=== PATIENT | female | born 1990 | race Caucasian/White ===

== ENCOUNTER → 2018-10-14 15:41 | Outpatient (CLI) | payer OTHER, SELFPAY ==
[2018-10-14 18:29] LABS: Hematocrit 40.2 % (36-46); Hemoglobin 13.5 g/dL (12.0-16.0)
[2018-10-14 19:01] LABS: GTT (PREG) 1 Hour PP 50gm Dose 138 mg/dL (76-139)
== END ==
PROVIDERS: Visit Provider Family Medicine
DX: Z34.02 Encounter for supervision of normal first pregnancy, second trimester (principal); Z3A.24 24 weeks gestation of pregnancy; Z34.01 Encounter for supervision of normal first pregnancy, first trimester
CPT/HCPCS: 36415; 82950; 85014; 85018; 86787

== ENCOUNTER 2018-11-28 10:48 | Observation (INO) | payer OTHER, SELFPAY ==
--- NOTE | 2018-11-28 11:19 | PM.OBHP.1 ---
OB HPI Date/Time Date of admission: 11/28/18 Date Patient Seen: 11/28/18 Time Patient Seen: 11:19 History of Present Condition Chief complaint: Observation : 1 Para: 0 Estimated Date of Delivery: 01/25/19 Estimated Gestational Age (weeks): 31 Narrative: Regi Couch is a 28 year old female with spontaneous rupture of membranes at 10:30 a.m. today History of Present care: good care (Patient started care at [facility] recently transferred care we do not have early records yet) and initiated at week # (11) Dating criteria: LMP confirmed by 1st trimester US Ultrasounds: normal 1st trimester US and normal mid trimester US Obstetrical complications: none Medical complications: none Preadmission Labs Blood type: A (+) positive -: Antibody screen: negative, HBsAG: negative, HIV: negative and RPR/VDLR: negative -: Chlamydia screen: not detected and Gonorrhea screen: not detected -: Rubella: immune and Varicella: immune HCT: 40 HCAB: negative Integrated screen: negative 1 hr GTT: 138 Evaluation Evaluation Baseline heart rate: 145 Variability: Moderate (11-25) monitor accelerations: Present monitor decelerations: Absent Contraction Frequency (minutes): 0 Category of Tracing: I Cervical dilation (cm): 0 Cervical effacement (%): 0 station: -1 Meds Home Medications Medication Instructions Recorded Confirmed Type 1 tab PO DAILY #30 tab 11/02/18 11/02/18 Rx vitamin,calcium,gzeeugse-hfuo-tfpqg acid tablet Allergies Allergy/AdvReac Type Severity Reaction Status Date / Time No Known Allergies Allergy Uncoded 10/28/17 12:44 Review of Systems Review of Systems Patient states she had a mild headache and did not feel well yesterday but feels great today. She has had good movement. No fevers. No abdominal pain. All systems reviewed & are unremarkable except as noted in HPI and below Exam Vital Signs (past 8 hours): Blood pressure 120/82, pulse 69, temperature 98.1? Narrative Exam Narrative: HEENT exam within normal limits. Lungs are clear to auscultation and percussion. Heart is regular rate and rhythm no S3-S4 or murmurs. No thyromegaly. Abdomen is gravid and nontender. Ultrasound confirms is vertex. Extremities without edema and nontender Objective Labs Result Diagrams: 11/28/18 11:15 Assessment and Plan Assessment and Plan Assessment and Plan narrative: 31w 5d wade gestation with premature rupture membranes. Cervix is long closed and thick. Infant is vertex. There are no contractions. Patient will receive betamethasone. Group B strep PCR was performed. Will transfer to a facility with intensive care unit. Will discuss with transfer unit whether they wishes to start ampicillin or penicillin, also whether they wish us to start IV magnesium sulfate. Time Spent with Patient Total time spent with greater than 50% in coordination of care (as documented) at patient's floor/unit and/or counseling patient:: 15-24 minutes
[2018-11-28] MEDS: BETAMETHASONE 30 MG/5 ML MDV 12 MG IM (11:21)
[2018-11-28] MEDS: LACTATED RINGERS 1,000 ML 100 ML IV (11:21)
[2018-11-28 11:26] LABS: Add Manual Diff / Slide Review NO; Basophils Absolute Auto 100 /uL (0-100); Basophils Percent Auto 0.6 % (0-2); Eosinophils Absolute Auto 100 /uL (0-450); Eosinophils Percent Auto 0.9 % (2-4); Hematocrit 41.2 % (36-46); Hemoglobin 13.8 g/dL (12.0-16.0); Lymphocytes Absolute Auto 2400 /uL (1100-4500); Mean Corpuscular HGB Conc 33.6 % (30-36); Mean Corpuscular Hemoglobin 30.3 PG (26-34); Mean Corpuscular Volume 90.1 fL (80-100); Monocytes Absolute Auto 500 /uL (0-900); Neutrophils Absolute Auto 6300 /uL (1500-7000); Neutrophils Percent Auto 67.5 % (50-75); Platelet Count 190 X10^3/uL (150-400); Red Blood Cell Count 4.57 X10^6/uL (4.0-5.2); Red Cell Distribution Width 13.2 % (11.6-14.8); White Blood Cell Count 9.3 X10^3/uL (4.5-11.0)
--- NOTE | 2018-11-28 11:26 | P.HPOB_ITS ---
OB HPI Date/Time Date of admission: 11/28/18 Date Patient Seen: 11/28/18 Time Patient Seen: 11:19 History of Present Condition Chief complaint: Observation : 1 Para: 0 Estimated Date of Delivery: 01/25/19 Estimated Gestational Age (weeks): 31 Narrative: Regi Couch is a 28 year old female with spontaneous rupture of membranes at 10:30 a.m. today History of Present care: good care (Patient started care at [facility] recently transferred care we do not have early records yet) and initiated at week # (11) Dating criteria: LMP confirmed by 1st trimester US Ultrasounds: normal 1st trimester US and normal mid trimester US Obstetrical complications: none Medical complications: none Preadmission Labs Blood type: A (+) positive -: Antibody screen: negative, HBsAG: negative, HIV: negative and RPR/VDLR: negative -: Chlamydia screen: not detected and Gonorrhea screen: not detected -: Rubella: immune and Varicella: immune HCT: 40 HCAB: negative Integrated screen: negative 1 hr GTT: 138 Evaluation Evaluation Baseline heart rate: 145 Variability: Moderate (11-25) monitor accelerations: Present monitor decelerations: Absent Contraction Frequency (minutes): 0 Category of Tracing: I Cervical dilation (cm): 0 Cervical effacement (%): 0 station: -1 Meds Home Medications Medication Instructions Recorded Confirmed Type 1 tab PO DAILY #30 tab 11/02/18 11/02/18 Rx vitamin,calcium,hoomvmbs-uwby-udvfv acid tablet Allergies Allergy/AdvReac Type Severity Reaction Status Date / Time No Known Allergies Allergy Uncoded 10/28/17 12:44 Review of Systems Review of Systems Patient states she had a mild headache and did not feel well yesterday but feels great today. She has had good movement. No fevers. No abdominal pain. All systems reviewed & are unremarkable except as noted in HPI and below Exam Vital Signs (past 8 hours): Blood pressure 120/82, pulse 69, temperature 98.1? Narrative Exam Narrative: HEENT exam within normal limits. Lungs are clear to auscultation and percussion. Heart is regular rate and rhythm no S3-S4 or murm urs. No thyromegaly. Abdomen is gravid and nontender. Ultrasound confirms is vertex. Extremities without edema and nontender Objective Labs Result Diagrams: 11/28/18 11:15 Assessment and Plan Assessment and Plan Assessment and Plan narrative: 31w 5d wade gestation with premature rupture membranes. Cervix is long closed and thick. is vertex. There are no contractions. Patient will receive betamethasone. Group B strep PCR was performed. Will transfer to a facility with intensive care unit. Will discuss with transfer unit whether they wishes to start ampicillin or penicillin, also whether they wish us to start IV magnesium sulfate. Time Spent with Patient Total time spent with greater than 50% in coordination of care (as documented) at patient's floor/unit and/or counseling patient:: 15-24 minutes
[2018-11-28] MEDS: MAGNESIUM SULFATE 4 GM/100 ML PIGGYBACK IV (12:14)
[2018-11-28] MEDS: AMPICILLIN 2,000 MG in SODIUM CHLORIDE 0.9% 100 ML 200 ML IV (12:18)
[2018-11-28] MEDS: MAGNESIUM SULFATE 20 GM/500 ML IV.SOLN IV (12:36)
[2018-11-28 13:22] LABS: Strep Grp B PCR NEG for Grp B Strep
[2018-11-28 15:56] LABS: Urine N gonorrhoeae NOT DETECTED
[2018-11-28 16:00] LABS: Urine Chlamydia NOT DETECTED
== END 2018-11-28 14:00 | disposition home or self-care (01) ==
LOC: LABOR 10:49
PROVIDERS: Admitting Provider Specialist; Visit Provider Specialist
DX: O42.913 Preterm premature rupture of membranes, unspecified as to length of time between rupture and onset of labor, third trimester (principal); Z3A.31 31 weeks gestation of pregnancy
CPT/HCPCS: 59025; 59050; 76815; 84112; 85025; 86850; 86900; 86901; 87081; 87086; 87491; 87591; 87653; 96360; 96372; 99234; G0378; G0379; J0290; J0702; J3475

== ENCOUNTER 2023-05-05 10:58 | Emergency (ER) | payer OTHER, SELFPAY ==
[2023-05-05] VITALS (17 sets, daily range): BP systolic 111–160; BP diastolic 78–100; PULSE 100–135; RESP 13–29; TEMP 36.9; O2SAT 96–99; BMI 26.9
--- NOTE | 2023-05-05 11:14 | DI.US.S_ITS ---
PROCEDURE: US PERIPH VENOUS LOW EXTREM LT INDICATIONS: ACUTE EDEMA, DISCOLORATION TECHNIQUE: Real-time imaging, as well as color and pulse Doppler interrogation, were performed of the lower extremity deep veins from the inguinal ligament to the popliteal fossa, with documentation of the visualized calf veins. COMPARISON: None. FINDINGS: Severely slow venous flow within the the common femoral vein, superficial femoral vein and popliteal vein. The common femoral, femoral, popliteal, and the visualized calf veins are free of intraluminal thrombus. There is normal augmentation response to distal compression maneuver. IMPRESSION: Severely slow venous flow within the common femoral vein to popliteal vein. Findings may indicate May-Thurner syndrome or more proximal compression. Recommend pelvic CT with contrast. Findings discussed with the ordering provider at time of dictation. Dictated by: Lew Barry M.D. on 05/05/2023 at 11:59 Approved by: Lew Barry M.D. on 05/05/2023 at 12:01
--- NOTE | 2023-05-05 11:15 | DI.RAD.S_ITS ---
PROCEDURE: XR CHEST 1V INDICATIONS: chest pain TECHNIQUE: One view of the chest was acquired. COMPARISON: None. FINDINGS: Surgical changes and devices: None. Lungs and pleura: Lungs are clear. No pleural effusions or pneumothorax. Mediastinum: Mediastinal contours appear normal. Heart size is normal. Bones and chest wall: No suspicious bony lesions. Overlying soft tissues appear unremarkable. IMPRESSION: No acute cardiopulmonary pathology. Dictated by: Mandeep Hammond M.D. on 05/05/2023 at 12:21 Approved by: Mandeep Hammond M.D. on 05/05/2023 at 12:21
--- NOTE | 2023-05-05 11:23 | DI.RAD.S_ITS ---
PROCEDURE: XR KNEE LT 3V INDICATIONS: left leg pain TECHNIQUE: 3 views of the knee were acquired. COMPARISON: None. FINDINGS: Bones: No fractures or dislocations. No suspicious bony lesions. Soft tissues: No joint effusion. No suspicious soft tissue calcifications. IMPRESSION: Left knee without acute osseous abnormalities. If there are persistent symptoms or clinical suspicion for pathology, then repeat radiographs or advanced imaging (CT or MRI) may be considered for further evaluation. Dictated by: Mir Segura M.D. on 05/05/2023 at 12:30 Approved by: Mir Segura M.D. on 05/05/2023 at 12:31
--- NOTE | 2023-05-05 11:34 | PC.NURSE ---
Pt states that she was helping her son get ready for daycare this morning and felt a pop in her left leg. 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 Left lower extremity is swollen and pt states that skin feels 'tight. Skin appears purplish-red on left leg and warm to touch bilaterally. pt denies any SOB or chest pain and deneis any hx of blood clot.
[2023-05-05 11:35] LABS: Add Manual Diff / Slide Review NO; Basophils Absolute Auto 100 /uL (0-100); Basophils Percent Auto 0.9 % (0-2); Eosinophils Absolute Auto 100 /uL (0-450); Eosinophils Percent Auto 0.5 % (2-4); Hematocrit 42.1 % (36-46); Hemoglobin 14.3 g/dL (12.0-16.0); Lymphocytes Absolute Auto 3500 /uL (1100-4500); Lymphocytes Percent Auto 31.7 % (25-40); Mean Corpuscular Hemoglobin 30.4 PG (26-34); Mean Corpuscular Volume 89.6 fL (80-100); Monocytes Absolute Auto 700 /uL (0-900); Neutrophils Absolute Auto 6700 /uL (1500-7000); Neutrophils Percent Auto 60.9 % (50-75); Platelet Count 395 X10^3/uL (150-400); Red Cell Distribution Width 12.8 % (11.6-14.8); White Blood Cell Count 10.9 X10^3/uL (4.5-11.0)
[2023-05-05 11:42] LABS: PTT Partial Thromboplastin Tim 25 SECONDS (26-36)
[2023-05-05 11:45] LABS: Alanine Aminotransferase 25 IU/L (<35); Albumin 4.5 g/dL (3.5-5.0); Albumin Globulin Ratio 1.1 (1.0-2.8); Alkaline Phosphatase 76 U/L (38-126); Aspartate Aminotransferase 29 IU/L (14-36); Bilirubin Total 0.4 mg/dL (0.2-1.3); Blood Urea Nitrogen 17 mg/dL (7-17); Calcium 9.7 mg/dL (8.4-10.2); Carbon Dioxide 18 mmol/L (22-32); Chloride 104 mmol/L (98-107); Creatine Kinase 44 U/L (30-135); Estimated Glomerular Filt Rate 45 mL/min (>60); Globulin 4.2 g/dL (1.7-4.1); Glucose 127 mg/dL (70-100); HEMOLYSIS < 15 (0-50); Lipase 147 U/L (23-300); Magnesium 1.7 mg/dL (1.6-2.3); Potassium 4.2 mmol/L (3.4-5.1); Sodium 136 mmol/L (137-145); Total Protein 8.7 g/dL (6.3-8.2)
--- NOTE | 2023-05-05 11:54 | DI.CT.S_ITS ---
PROCEDURE: CT PELVIS W CON INDICATIONS: Leg pain TECHNIQUE: After the administration of intravenous contrast, 5 mm thick sections acquired from the iliac crests to the symphysis. 5 mm coronal and sagittal reformats were acquired. For radiation dose reduction, the following was used: automated exposure control, adjustment of mA and/or kV according to patient size. COMPARISON: None. FINDINGS: Image quality: Excellent. Peritoneum and bowel: Bowel loops demonstrate normal wall thickness and caliber. No free fluid or air. Moderate fecal burden seen in the colon and rectum. Genitourinary: Bladder wall thickness is normal. Nodes and vessels: No iliac, pelvic, or inguinal adenopathy by size criteria. Right-sided Iliac vessels demonstrate normal size and enhancement. There is mild stranding surrounding the proximal segments of the common femoral vein and iliac veins distally. The right internal iliac artery is superficial and crosses over the proximal/origin of the left common iliac vein with associated narrowing. The more distal segments of the left iliac vein are normal. There appears to be slightly more prominent left pelvic pains compared to the right, possibly representing collaterals. Bones: No suspicious bony lesions. Miscellaneous: No inguinal hernias. 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 There appears to be prominent left pelvic veins which likely represent venous collaterals. Consider further evaluation with interventional radiology consultation for venography. Dictated by: Mir Segura M.D. on 05/05/2023 at 12:32 Approved by: Mir Segura M.D. on 05/05/2023 at 13:14
[2023-05-05 11:56] LABS: Troponin I < 0.012 ng/mL (0.01-0.034)
--- NOTE | 2023-05-05 13:54 | ED.LOWEXIN ---
HPI - Extremity Injury (Lower) <Manav Bojorquez PA-C - Last Filed: 05/05/23 18:40> General Chief Complaint: Extremity Injury, Lower Stated Complaint: blood clot in L/leg Time Seen by Provider: 05/05/23 11:41 Source: patient Mode of arrival: Ambulatory History of Present Illness HPI Narrative: Jaclyn since 32-year-old female with no reported past medical history presents to the ED with 1 day of left leg pain, swelling. Patient states she was squatting down to help tie her kids shoe, felt a popping sensation in her left upper leg, since then her left leg has been swollen, discolored, heavy. Patient does not describe a sensation as pain, but more as a heaviness and slight numbness. Patient denies chest pain, shortness of breath, fever, chills, nausea, vomiting, abdominal pain, lightheadedness, dizziness, syncope. 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 Related Data Previous Rx's Medication Instructions Recorded norethindrone (contraceptive) 0.35 0.35 mg PO DAILY #84 tabs 01/24/19 mg tablet (Ortho Micronor) prenat.vits,haydee,yfw-zqtq-mevel 1 tab PO DAILY #30 tabs 01/24/19 Allergies Allergy/AdvReac Type Severity Reaction Status Date / Time No Known Drug Allergies Allergy Verified 05/05/23 11:02 Review of Systems <Manav Bojorquez PA-C - Last Filed: 05/05/23 18:40> Constitutional Constitutional: Denies chills, Denies fatigue, Denies fever(s), Denies frequent falls, Denies lethargy and Denies weakness Eyes Eyes: Denies change in vision, Denies eye discharge, Denies irritation and Denies loss of vision ENT Ears, Nose, Mouth, and Throat: Denies change in voice, Denies dizziness, Denies neck pain, Denies sore throat and Denies throat swelling Cardiovascular Cardiovascular: Denies chest pain, Denies irregular heart rhythm, Denies lightheadedness, Denies palpitations, Denies dyspnea, Denies dyspnea on exertion and Denies orthopnea Respiratory Respiratory: Denies cough, Denies dyspnea, Denies dyspnea on exertion and Denies wheezing Gastrointestinal Gastrointestinal: Denies abdominal pain, Denies change in bowel habits, Denies diarrhea, Denies nausea and Denies vomiting Musculoskeletal Musculoskeletal: Denies neck pain and Denies numbness Comments: Left leg pain, swelling Integumentary/Breasts Skin/Breast: Denies pruritus, Denies erythema, Denies rash and Denies wounds Neurologic Neurologic: Denies behavioral changes, Denies confusion, Denies dizziness, Denies frequent falls, Denies loss of vision, Denies numbness and Denies weakness Psychiatric Psychiatric: Denies anxiety, Denies behavioral changes, Denies confusion, Denies depression, Denies homicidal ideation and Denies suicidal ideation Endocrine Endocrine: Denies fatigue, Denies flushing and Denies palpitations Hematologic/Lymphatic Hematologic/Lymphatic: Denies easy bruising Allergic/Immunologic Allergic/Immunologic: Denies urticaria, Denies throat swelling and Denies wheezing Patient History <Manav Bojorquez PA-C - Last Filed: 05/05/23 18:40> Social History marital status: household members: spouse and children Smoking Status: Never smoker alcohol intake: never substance use type: does not use Smoking Status: Never smoker Substance Use Type: does not use Exam <Manav Bojorquez PA-C - Last Filed: 05/05/23 18:40> Narrative Exam Narrative: Const General:?cooperative, healthy appearing and comfortable [facility] Head:?normal to inspection Ears:?hearing grossly normal bilaterally Nose:?external nose normal Face and sinus:?normal facial exam and sinuses nontender Mouth:?oral mucosae normal Throat:?posterior oropharynx normal Eyes General:?appearance normal, both eyes and all related structures Neck Neck:?normal visual inspection and no lymphadenopathy noted Resp Effort & Inspection:?normal respiratory effort Auscultation:?clear to auscultation bilaterally Cardio Rate:?regular rate Rhythm:?regular rhythm Musculoskeletal Left leg appears discolored, significantly swollen compared to the right leg. Strength and sensation is intact. There is full range of motion. Pedal pulses intact Patient is neurovascularly intact. Neuro General:?patient alert, patient awake and patient oriented x3 Initial Vital Signs Initial Vital Signs: Vital Signs Temperature 98.4 F 05/05/23 11:02 Pulse Rate 135 H 05/05/23 11:02 Respiratory Rate 24 05/05/23 11:02 Blood Pressure 140/95 H 05/05/23 11:02 Pulse Oximetry 99 05/05/23 11:02 Oxygen Delivery Method Room Air 05/05/23 11:02 <Cristian Sena MD - Last Filed: 05/06/23 08:04> Initial Vital Signs Initial Vital Signs: Vital Signs Temperature 98.4 F 05/05/23 11:02 Pulse Rate 135 H 05/05/23 11:02 Respiratory Rate 24 05/05/23 11:02 Blood Pressure 140/95 H 05/05/23 11:02 Pulse Oximetry 99 05/05/23 11:02 Oxygen Delivery Method Room Air 05/05/23 11:02 Course <Manav Bojorquez PA-C - Last Filed: 05/05/23 18:40> Orders Ordered: Discontinued Medications Heparin Sodium (Porcine) (Heparin 5,000 Unit/Ml Vial) 6,400 unit 80 unit/kg (6400 unit) IV NOW ONE Stop: 05/05/23 13:47 Last Admin: 05/05/23 14:13 Dose: 6,400 unit Documented By: ÁNGEL Heparin Sodium/Dextrose (Heparin Drip) 25,000 unit in 500 mls @ 19.269 mls/hr IV CONT NAHED; Protocol Last Admin: 05/05/23 15:41 Dose: Not Given Documented By: ÁNGEL Heparin Sodium/Dextrose (Heparin Drip) 25,000 unit in 500 mls @ 28.903 mls/hr IV CONT NAHED; Protocol Last Admin: 05/05/23 14:13 Dose: 18 units/kg/hr, 28.903 mls/hr Documented By: ÁNGEL Co-signed By: MICHELLE Lorazepam (Lorazepam 2 Mg/Ml Inj) 1 mg IV NOW ONE Stop: 05/05/23 13:54 Last Admin: 05/05/23 15:40 Dose: Not Given Documented By: ÁNGEL Lorazepam (Lorazepam 2 Mg/Ml Inj) 1 mg IV NOW ONE Stop: 05/05/23 16:42 Last Admin: 05/05/23 16:58 Dose: 1 mg Documented By: ÁNGEL Vital Signs Vital signs: Vital Signs - 8 hr 05/05/23 11:02 05/05/23 11:14 05/05/23 12:14 Temperature 98.4 F Pulse Rate 135 H 114 H Pulse Rate [Bilateral Dorsalis Pedis] Respiratory Rate 24 20 Blood Pressure 140/95 H 160/93 H 131/86 Pulse Oximetry 99 97 Oxygen Delivery Method Room Air Room Air 05/05/23 12:14 05/05/23 12:30 05/05/23 12:30 Temperature Pulse Rate 100 H 105 H Pulse Rate [Bilateral Dorsalis Pedis] Respiratory Rate 13 15 Blood Pressure 119/82 Pulse Oximetry 99 97 Oxygen Delivery Method 05/05/23 13:00 05/05/23 13:00 05/05/23 13:30 Temperature Pulse Rate 104 H Pulse Rate [Bilateral Dorsalis Pedis] Respiratory Rate 15 Blood Pressure 122/91 H 129/87 Pulse Oximetry 99 Oxygen Delivery Method 05/05/23 13:30 05/05/23 14:00 05/05/23 14:00 Temperature Pulse Rate 104 H 106 H Pulse Rate [Bilateral Dorsalis Pedis] Respiratory Rate 16 20 Blood Pressure 131/94 H Pulse Oximetry 99 98 Oxygen Delivery Method 05/05/23 14:30 05/05/23 14:30 05/05/23 15:00 Temperature Pulse Rate 111 H Pulse Rate [Bilateral Dorsalis Pedis] 108 H Respiratory Rate 21 Blood Pressure 114/78 Pulse Oximetry 98 Oxygen Delivery Method 05/05/23 15:00 05/05/23 15:00 05/05/23 15:30 Temperature Pulse Rate 113 H 113 H Pulse Rate [Bilateral Dorsalis Pedis] Respiratory Rate 23 17 Blood Pressure 111/91 H Pulse Oximetry 97 98 Oxygen Delivery Method 05/05/23 15:31 05/05/23 15:31 05/05/23 15:32 Temperature Pulse Rate 111 H 113 H Pulse Rate [Bilateral Dorsalis Pedis] Respiratory Rate 29 H 21 Blood Pressure 134/100 H Pulse Oximetry 98 98 Oxygen Delivery Method 05/05/23 15:32 05/05/23 16:00 05/05/23 16:00 Temperature Pulse Rate 110 H Pulse Rate [Bilateral Dorsalis Pedis] Respiratory Rate 21 Blood Pressure 124/83 111/83 Pulse Oximetry 97 Oxygen Delivery Method 05/05/23 16:30 05/05/23 16:30 05/05/23 17:01 Temperature Pulse Rate 108 H Pulse Rate [Bilateral Dorsalis Pedis] Respiratory Rate 19 Blood Pressure 126/86 125/86 Pulse Oximetry 96 Oxygen Delivery Method 05/05/23 17:01 05/05/23 17:19 05/05/23 17:30 Temperature Pulse Rate 120 H 126 H 125 H Pulse Rate [Bilateral Dorsalis Pedis] Respiratory Rate 19 Blood Pressure Pulse Oximetry 96 96 Oxygen Delivery Method <Cristian Sena MD - Last Filed: 05/06/23 08:04> Orders Ordered: Discontinued Medications Heparin Sodium (Porcine) (Heparin 5,000 Unit/Ml Vial) 6,400 unit 80 unit/kg (6400 unit) IV NOW ONE Stop: 05/05/23 13:47 Last Admin: 05/05/23 14:13 Dose: 6,400 unit Documented By: ÁNGEL Heparin Sodium/Dextrose (Heparin Drip) 25,000 unit in 500 mls @ 19.269 mls/hr IV CONT NAHED; Protocol Last Admin: 05/05/23 15:41 Dose: Not Given Documented By: ÁNGEL Heparin Sodium/Dextrose (Heparin Drip) 25,000 unit in 500 mls @ 28.903 mls/hr IV CONT NAHED; Protocol Last Admin: 05/05/23 14:13 Dose: 18 units/kg/hr, 28.903 mls/hr Documented By: ÁNGEL Co-signed By: MICHELLE Lorazepam (Lorazepam 2 Mg/Ml Inj) 1 mg IV NOW ONE Stop: 05/05/23 13:54 Last Admin: 05/05/23 15:40 Dose: Not Given Documented By: ÁNGEL Lorazepam (Lorazepam 2 Mg/Ml Inj) 1 mg IV NOW ONE Stop: 05/05/23 16:42 Last Admin: 05/05/23 16:58 Dose: 1 mg Documented By: ÁNGEL Vital Signs Vital signs: Vital Signs - 8 hr 05/05/23 11:02 05/05/23 11:14 05/05/23 12:14 Temperature 98.4 F Pulse Rate 135 H 114 H Pulse Rate [Bilateral Dorsalis Pedis] Respiratory Rate 24 20 Blood Pressure 140/95 H 160/93 H 131/86 Pulse Oximetry 99 97 Oxygen Delivery Method Room Air Room Air 05/05/23 12:14 05/05/23 12:30 05/05/23 12:30 Temperature Pulse Rate 100 H 105 H Pulse Rate [Bilateral Dorsalis Pedis] Respiratory Rate 13 15 Blood Pressure 119/82 Pulse Oximetry 99 97 Oxygen Delivery Method 05/05/23 13:00 05/05/23 13:00 05/05/23 13:30 Temperature Pulse Rate 104 H Pulse Rate [Bilateral Dorsalis Pedis] Respiratory Rate 15 Blood Pressure 122/91 H 129/87 Pulse Oximetry 99 Oxygen Delivery Method 05/05/23 13:30 05/05/23 14:00 05/05/23 14:00 Temperature Pulse Rate 104 H 106 H Pulse Rate [Bilateral Dorsalis Pedis] Respiratory Rate 16 20 Blood Pressure 131/94 H Pulse Oximetry 99 98 Oxygen Delivery Method 05/05/23 14:30 05/05/23 14:30 05/05/23 15:00 Temperature Pulse Rate 111 H Pulse Rate [Bilateral Dorsalis Pedis] 108 H Respiratory Rate 21 Blood Pressure 114/78 Pulse Oximetry 98 Oxygen Delivery Method 05/05/23 15:00 05/05/23 15:00 05/05/23 15:30 Temperature Pulse Rate 113 H 113 H Pulse Rate [Bilateral Dorsalis Pedis] Respiratory Rate 23 17 Blood Pressure 111/91 H Pulse Oximetry 97 98 Oxygen Delivery Method 05/05/23 15:31 05/05/23 15:31 05/05/23 15:32 Temperature Pulse Rate 111 H 113 H Pulse Rate [Bilateral Dorsalis Pedis] Respiratory Rate 29 H 21 Blood Pressure 134/100 H Pulse Oximetry 98 98 Oxygen Delivery Method 05/05/23 15:32 05/05/23 16:00 05/05/23 16:00 Temperature Pulse Rate 110 H Pulse Rate [Bilateral Dorsalis Pedis] Respiratory Rate 21 Blood Pressure 124/83 111/83 Pulse Oximetry 97 Oxygen Delivery Method 05/05/23 16:30 05/05/23 16:30 05/05/23 17:01 Temperature Pulse Rate 108 H Pulse Rate [Bilateral Dorsalis Pedis] Respiratory Rate 19 Blood Pressure 126/86 125/86 Pulse Oximetry 96 Oxygen Delivery Method 05/05/23 17:01 05/05/23 17:19 05/05/23 17:30 Temperature Pulse Rate 120 H 126 H 125 H Pulse Rate [Bilateral Dorsalis Pedis] Respiratory Rate 19 Blood Pressure Pulse Oximetry 96 96 Oxygen Delivery Method MDM - Extremity Injury (Lower) <Manav Bojorquez PA-C - Last Filed: 05/05/23 18:40> Lab Data 05/05/23 11:20 05/05/23 11:20 Labs: Lab Results 05/05/23 Range/Units 11:20 WBC 10.9 (4.5-11.0) X10^3/uL RBC 4.70 (4.0-5.2) X10^6/uL Hgb 14.3 (12.0-16.0) g/dL Hct 42.1 (36-46) % MCV 89.6 (80-100) fL MCH 30.4 (26-34) PG MCHC 34.0 (30-36) % RDW 12.8 (11.6-14.8) % Plt Count 395 (150-400) X10^3/uL Neut % (Auto) 60.9 (50-75) % Lymph % (Auto) 31.7 (25-40) % Elbert % (Auto) 6.0 (3-14) % Eos % (Auto) 0.5 L (2-4) % Baso % (Auto) 0.9 (0-2) % Neut # (Auto) 6700 (2078-5832) /uL Lymph # (Auto) 3500 (7824-0546) /uL Elbert # (Auto) 700 (0-900) /uL Eos # (Auto) 100 (0-450) /uL Baso # (Auto) 100 (0-100) /uL PT 11.0 (10.1-12.7) SECONDS INR 1.0 (0.9-1.3) APTT 25 L (26-36) SECONDS Sodium 136 L (137-145) mmol/L Potassium 4.2 (3.4-5.1) mmol/L Chloride 104 (98-107) mmol/L Carbon Dioxide 18 L (22-32) mmol/L BUN 17 (7-17) mg/dL Creatinine 1.55 H (0.52-1.04) mg/dL Estimated GFR 45 L (>60) mL/min BUN/Creatinine Ratio 11.0 (6-22) Glucose 127 H (70-100) mg/dL Calcium 9.7 (8.4-10.2) mg/dL Magnesium 1.7 (1.6-2.3) mg/dL Total Bilirubin 0.4 (0.2-1.3) mg/dL AST 29 (14-36) IU/L ALT 25 (<35) IU/L Alkaline Phosphatase 76 (38-126) U/L Total Creatine Kinase 44 (30-135) U/L Troponin I < 0.012 (0.01-0.034) ng/mL Total Protein 8.7 H (6.3-8.2) g/dL Albumin 4.5 (3.5-5.0) g/dL Globulin 4.2 H (1.7-4.1) g/dL Albumin/Globulin Ratio 1.1 (1.0-2.8) Lipase 147 (23-300) U/L MDM Narrative Medical decision making narrative: May-Thurner since 32-year-old female with no reported past medical history presents to the ED with 1 day of left leg pain, swelling. Concern for DVT versus fracture/dislocation versus musculoskeletal sprain/strain versus other. Obtained EKG, chest x-ray, labs, troponin, ultrasound left lower extremity, x-ray of the knee. Ultrasound shows severely slow venous flow within the common femoral vein, superior femoral vein and popliteal vein. The common femoral, femoral, popliteal and visualized calf veins are free of intraluminal thrombus. Findings may indicate May-Thurner syndrome or more proximal compression. Radiologist recommends pelvic CT with contrast. Pelvic CT with contrast was obtained with findings suggestive of May-Thurner syndrome. There appears to be prominent left pelvic pains which likely represent venous collaterals. Radiology recommends further evaluation with Interventional Radiology consultation for venography. Dr. Dixon from [facility] intervention radiology was consulted, she recommends starting a heparin drip, transferring to [facility] for a thrombectomy/stent placement tomorrow. Patient to be NPO midnight. Discussed findings and plan with patient. She verbalizes understanding. Will elevate leg for patient comfort, give some Ativan to alleviate anxiety. Will speak with hospitalist head [facility] to transfer patient. Spoke with [facility] hospitalist Dr. Kim who graciously accepts the patient. Patient will be transferred [facility]. Interval neurovascular checks done on patient. Last check was at 5:37 p.m. prior to patient being transported to [facility]. Pedal pulses were intact. Compartments were soft. Patient was able to walk to the bathroom and back. Patient was neurovascularly intact. <Cristian Sena MD - Last Filed: 05/06/23 08:04> Lab Data Labs: Lab Results 05/05/23 Range/Units 11:20 WBC 10.9 (4.5-11.0) X10^3/uL RBC 4.70 (4.0-5.2) X10^6/uL Hgb 14.3 (12.0-16.0) g/dL Hct 42.1 (36-46) % MCV 89.6 (80-100) fL MCH 30.4 (26-34) PG MCHC 34.0 (30-36) % RDW 12.8 (11.6-14.8) % Plt Count 395 (150-400) X10^3/uL Neut % (Auto) 60.9 (50-75) % Lymph % (Auto) 31.7 (25-40) % Elbert % (Auto) 6.0 (3-14) % Eos % (Auto) 0.5 L (2-4) % Baso % (Auto) 0.9 (0-2) % Neut # (Auto) 6700 (1720-7206) /uL Lymph # (Auto) 3500 (3545-2640) /uL Elbert # (Auto) 700 (0-900) /uL Eos # (Auto) 100 (0-450) /uL Baso # (Auto) 100 (0-100) /uL PT 11.0 (10.1-12.7) SECONDS INR 1.0 (0.9-1.3) APTT 25 L (26-36) SECONDS Sodium 136 L (137-145) mmol/L Potassium 4.2 (3.4-5.1) mmol/L Chloride 104 (98-107) mmol/L Carbon Dioxide 18 L (22-32) mmol/L BUN 17 (7-17) mg/dL Creatinine 1.55 H (0.52-1.04) mg/dL Estimated GFR 45 L (>60) mL/min BUN/Creatinine Ratio 11.0 (6-22) Glucose 127 H (70-100) mg/dL Calcium 9.7 (8.4-10.2) mg/dL Magnesium 1.7 (1.6-2.3) mg/dL Total Bilirubin 0.4 (0.2-1.3) mg/dL AST 29 (14-36) IU/L ALT 25 (<35) IU/L Alkaline Phosphatase 76 (38-126) U/L Total Creatine Kinase 44 (30-135) U/L Troponin I < 0.012 (0.01-0.034) ng/mL Total Protein 8.7 H (6.3-8.2) g/dL Albumin 4.5 (3.5-5.0) g/dL Globulin 4.2 H (1.7-4.1) g/dL Albumin/Globulin Ratio 1.1 (1.0-2.8) Lipase 147 (23-300) U/L Discharge Plan Departure Patient Disposition: [facility] 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 MD Nathen
[2023-05-05] MEDS: HEPARIN 5,000 UNIT/ML VIAL 6400 UNIT IV (14:13)
[2023-05-05] MEDS: HEPARIN DRIP 25,000 UNIT/500 ML IV.SOLN 28.903 UNIT IV (14:13)
[2023-05-05] MEDS: LORazepam 2 MG/ML INJ 1 MG IV (16:58)
--- NOTE | 2023-05-07 14:32 | PC.NURSE ---
late entry- patient was transported to another facility with Heparin drip infusing per RN
== END 2023-05-05 17:38 | disposition short-term general hospital (02) ==
PROVIDERS: Emergency Medicine; Emergency Provider Student in an Organized Health Care Education/Training Program
DX: I87.1 Compression of vein (principal); R07.9 Chest pain, unspecified
CPT/HCPCS: 36415; 71045; 72193; 73562; 80053; 82550; 83690; 83735; 84484; 85025; 85610; 85730; 93005; 93010; 93971; 96365; 96366; 96375; 99284; J1644; J2060; Q9967

== ENCOUNTER → 2023-08-24 17:21 | Outpatient (CLI) | payer OTHER, SELFPAY ==
[2023-08-24 18:24] LABS: HCG Quantitative /Beta subunit 2439.6 mIU/mL
== END ==
PROVIDERS: Referring Provider Obstetrics & Gynecology; Visit Provider Obstetrics & Gynecology
DX: O20.9 Hemorrhage in early pregnancy, unspecified (principal)
CPT/HCPCS: 36415; 84702

== ENCOUNTER → 2023-08-26 17:06 | Outpatient (CLI) | payer OTHER, SELFPAY ==
[2023-08-26 18:19] LABS: HCG Quantitative /Beta subunit 1556.7 mIU/mL
== END ==
LOC: LAB 17:08
PROVIDERS: Referring Provider Obstetrics & Gynecology; Visit Provider Obstetrics & Gynecology
DX: O20.9 Hemorrhage in early pregnancy, unspecified (principal)
CPT/HCPCS: 36415; 84702